=== PATIENT | female | born 1965 | race Caucasian/White ===

== ENCOUNTER → 2020-08-08 | Outpatient (CLI) | payer OTHER ==
[2020-08-08 13:15] LABS: HEMOGLOBIN 13.5 gm/dl (12.3-15.3); RED BLOOD COUNT 4.34 M/UL (4.00-5.10); WHITE BLOOD COUNT 4.7 K/UL (4.5-11.0)
[2020-08-08 13:28] LABS: BUN/CREATININE RATIO 24 (0-10)
== END ==
LOC: LAB 11:41
PROVIDERS: Internal Medicine
DX: R70.0 Elevated erythrocyte sedimentation rate (principal); M32.9 Systemic lupus erythematosus, unspecified; R76.8 Other specified abnormal immunological findings in serum; D89.89 Other specified disorders involving the immune mechanism, not elsewhere classified; Z79.899 Other long term (current) drug therapy; Z92.21 Personal history of antineoplastic chemotherapy
CPT/HCPCS: 80053; 81001; 82570; 84156; 85025; 85652; 86140